=== PATIENT | male | born 1935 | race Caucasian/White ===

== ENCOUNTER 2017-02-11 08:25 | Emergency (ER) | payer OTHER ==
[2017-02-11] MEDS ORDERED: ONDANSETRON 4 MG/2 ML VIAL ONE (08:43)
[2017-02-11] MEDS ORDERED: HYDROmorphONE/DILAUDID 1 MG/ML SYR IVP ONE ×2 (08:51→10:17)
[2017-02-11] MEDS ORDERED: ONDANSETRON 4 MG/2 ML VIAL IVP ONE (08:51)
[2017-02-11] MEDS ORDERED: NS 1,000 ML IV ONE (08:51)
--- NOTE | 2017-02-11 08:51 | EDPHY ---
H & P Stated Complaint: Vomiting and LLQ pain for two hours. Time Seen by Provider: 02/11/17 08:48 HPI/ROS: CHIEF COMPLAINT: Left lower quadrant pain HISTORY OF PRESENT ILLNESS: Patient is an 81-year-old man who comes to the emergency department complaining of left lower quadrant pain that began 2 hours ago. he states that this is never happened before. He has vomited 3 times. No diarrhea. He felt well yesterday. He denies any medical history and takes no medications. He states that he saw his doctor Damon this morning who told him to come to the ER and get a CT scan. No fevers. REVIEW OF SYSTEMS: Constitutional: denies: chills, fever, recent illness, recent injury EENTM: denies: blurred vision, double vision, nose congestion Respiratory: denies: cough, shortness of breath Cardiac: denies: chest pain, irregular heart rate, lightheadedness, palpitations Gastrointestinal/Abdominal: See HPI Genitourinary: denies: dysuria, frequency, hematuria, pain Musculoskeletal: denies: joint pain, muscle pain Skin: denies: lesions, rash, jaundice, bruising Neurological: denies: headache, numbness, paresthesia, tingling, dizziness, weakness Hematologic/Lymphatic: denies: blood clots, easy bleeding, easy bruising Immunologic/allergic: denies: HIV/AIDS, transplant EXAM: GENERAL: Well-appearing, well-nourished and in no acute distress. HEAD: Atraumatic, normocephalic. EYES: Pupils equal round and reactive to light, extraocular movements intact, sclera anicteric, conjunctiva are normal. ENT: TMs normal, nares patent, oropharynx clear without exudates. Moist mucous membranes. NECK: Normal range of motion, supple without lymphadenopathy or JVD. LUNGS: Breath sounds clear to auscultation bilaterally and equal. No wheezes rales or rhonchi. HEART: Regular rate and rhythm without murmurs, rubs or gallops. ABDOMEN: Left lower quadrant pain and mild tenderness. BACK: No CVA tenderness, no spinal tenderness, step-offs or deformities EXTREMITIES: Normal range of motion, no pitting or edema. No clubbing or cyanosis. NEUROLOGICAL: Cranial nerves II through XII grossly intact. Normal speech, normal gait. 5/5 strength, normal movement in all extremities, normal sensation PSYCH: Normal mood, normal affect. SKIN: Warm, dry, normal turgor, no visible rashes or lesions. Source: Patient Exam Limitations: No limitations - Personal History Current Tetanus/Diphtheria Vaccine: Unsure Current Tetanus Diphtheria and Acellular Pertussis (TDAP): Unsure - Medical/Surgical History Hx Asthma: No Hx Chronic Respiratory Disease: No Hx Diabetes: No Hx Cardiac Disease: No Hx Renal Disease: No Hx Cirrhosis: No Hx Alcoholism: No Hx HIV/AIDS: No Hx Splenectomy or Spleen Trauma: No Other PMH: High cholesterol. - Family History Significant Family History: No pertinent family hx - Social History Smoking Status: Never smoked Alcohol Use: Sober Drug Use: None Constitutional: Initial Vital Signs Temperature (C) 36.8 C 02/11/17 08:26 Heart Rate 82 02/11/17 08:26 Respiratory Rate 18 02/11/17 08:26 Blood Pressure 178/99 H 02/11/17 08:26 O2 Sat (%) 94 02/11/17 08:26 O2 Delivery Mode Room Air O2 (L/minute) 2 Allergies/Adverse Reactions: No Known Allergies Allergy (Unverified 02/11/17 08:30) Home Medications: Medication Instructions Recorded Cholesterol Medication 02/11/17 Hydrocodone/APAP 5/325 [[place] 1 - 2 tab PO Q4H PRN #10 tab 02/11/17 5/325] Ketorolac Tromethamine [Toradol] 10 mg PO Q6H #16 tab 02/11/17 Ondansetron Odt [Zofran Odt 4 mg 4 mg PO Q4 PRN #20 tab 02/11/17 (RX)] Tamsulosin HCl [Flomax] 0.4 mg PO DAILY #10 cap 02/11/17 Medical Decision Making - Diagnostics EKG Interpretation: An EKG obtained and was read and documented in trace view. Please see trace view for full reading and report. Sinus rhythm, first-degree block, Imaging Results: Imaging Impressions Abdomen CT 02/11/17 08:52 Impression: 1. 5 x 4 mm distal left ureteral calculus (bulging into the urinary bladder lumen) results in mild left hydronephrosis and hydroureter. 2. Minimal diverticulosis of the descending and sigmoid colon. No acute diverticulitis. 3. Atherosclerotic normal caliber abdominal aorta. No aneurysm. 4. Small to moderate hiatal hernia. Findings discussed with Emergency Department physician, Forrest Luu, on February 11, 2017 at 10:20 a.m. ED Course/Re-evaluation: 11:00 a.m. we discussed the CT results. The patient is currently comfortable. His abdominal exam is benign. He has not yet provided a urine sample. We discussed kidney stone analysis and follow up with Urology. He is happy with this plan and is eager to go home. Differential Diagnosis: Partial list of the Differential diagnosis considered include but were not limited to; kidney stone, diverticulitis and although unlikely based on the history and physical exam, I also considered appendicitis, hernia, volvulus, ischemia, aneurysm. I discussed these differential diagnoses and the plan with the patient as well as the usual and expected course. The patient understands that the diagnosis is provisional and that in medicine we are not always correct and that further workup is often warranted. Usual and customary warnings were given. All of the patient's questions were answered. The patient was instructed to return to the emergency department should the symptoms at all worsen or return, otherwise to followup with the physician as we discussed. - Data Points Laboratory Results: Laboratory Results 02/11/17 08:50 02/11/17 08:50 02/11/17 02/11/17 02/11/17 11:15 08:50 08:50 WBC RBC Hgb Hct MCV MCH MCHC RDW Plt Count MPV Neut % (Auto) Lymph % (Auto) [place] % (Auto) Eos % (Auto) Baso % (Auto) Nucleat RBC Rel Count Absolute Neuts (auto) Absolute Lymphs (auto) Absolute Monos (auto) Absolute Eos (auto) Absolute Basos (auto) Absolute Nucleated RBC Immature Gran % Immature Gran # PT 13.1 SEC SEC (12.0-15.0) INR 1.00 (0.83-1.16) APTT 23.5 SEC SEC (23.0-38.0) Sodium 142 mEq/L mEq/L (134-144) Potassium 3.8 mEq/L mEq/L (3.5-5.2) Chloride 102 mEq/L mEq/L (97-110) Carbon Dioxide 24 mEq/l mEq/l (22-31) Anion Gap 16 mEq/L mEq/L (8-16) BUN 23 mg/dL mg/dL (7-23) Creatinine 1.3 mg/dL mg/dL (0.7-1.3) Estimated GFR 53 Glucose 188 mg/dL H mg/dL (70-100) Calcium 9.5 mg/dL mg/dL (8.5-10.4) Total Bilirubin 1.2 mg/dL mg/dL (0.1-1.4) Conjugated Bilirubin 0.5 mg/dL mg/dL (0.0-0.5) Unconjugated Bilirubin 0.7 mg/dL mg/dL (0.0-1.1) AST 45 IU/L IU/L (17-59) ALT 77 IU/L H IU/L (21-72) Alkaline Phosphatase 123 IU/L IU/L (38-126) Total Protein 8.6 g/dL H g/dL (6.3-8.2) Albumin 4.5 g/dL g/dL (3.5-5.0) Lipase 140.0 IU/L IU/L (23-300) Urine Color YELLOW Urine Appearance CLEAR Urine pH 5.0 (5.0-7.5) Ur Specific [place] 1.020 (1.002-1.030) Urine Protein NEGATIVE (NEGATIVE) Urine Ketones NEGATIVE (NEGATIVE) Urine Blood 1+ H (NEGATIVE) Urine Nitrate NEGATIVE (NEGATIVE) Urine Bilirubin NEGATIVE (NEGATIVE) Urine Urobilinogen NEGATIVE EU EU (0.2-1.0) Ur Leukocyte Esterase NEGATIVE (NEGATIVE) Urine RBC 15-25 /hpf H /hpf (0-3) Urine WBC 1-3 /hpf /hpf (0-3) Ur Epithelial Cells NONE SEEN /lpf /lpf (NONE-1+) Urine Mucus TRACE /lpf /lpf (NONE-1+) Urine Glucose NEGATIVE (NEGATIVE) 02/11/17 08:50 WBC 10.88 10^3/uL H 10^3/uL (3.80-9.50) RBC 5.04 10^6/uL 10^6/uL (4.40-6.38) Hgb 15.7 g/dL g/dL (13.7-17.5) Hct 45.3 % % (40.0-51.0) MCV 89.9 fL fL (81.5-99.8) MCH 31.2 pg pg (27.9-34.1) MCHC 34.7 g/dL g/dL (32.4-36.7) RDW 13.2 % % (11.5-15.2) Plt Count 223 10^3/uL 10^3/uL (150-400) MPV 9.0 fL fL (8.7-11.7) Neut % (Auto) 76.2 % H % (39.3-74.2) Lymph % (Auto) 16.0 % % (15.0-45.0) [place] % (Auto) 4.6 % % (4.5-13.0) Eos % (Auto) 1.9 % % (0.6-7.6) Baso % (Auto) 0.6 % % (0.3-1.7) Nucleat RBC Rel Count 0.0 % % (0.0-0.2) Absolute Neuts (auto) 8.29 10^3/uL H 10^3/uL (1.70-6.50) Absolute Lymphs (auto) 1.74 10^3/uL 10^3/uL (1.00-3.00) Absolute Monos (auto) 0.50 10^3/uL 10^3/uL (0.30-0.80) Absolute Eos (auto) 0.21 10^3/uL 10^3/uL (0.03-0.40) Absolute Basos (auto) 0.06 10^3/uL 10^3/uL (0.02-0.10) Absolute Nucleated RBC 0.00 10^3/uL 10^3/uL (0-0.01) Immature Gran % 0.7 % % (0.0-1.1) Immature Gran # 0.08 10^3/uL 10^3/uL (0.00-0.10) PT INR APTT Sodium Potassium Chloride Carbon Dioxide Anion Gap BUN Creatinine Estimated GFR Glucose Calcium Total Bilirubin Conjugated Bilirubin Unconjugated Bilirubin AST ALT Alkaline Phosphatase Total Protein Albumin Lipase Urine Color Urine Appearance Urine pH Ur Specific [place] Urine Protein Urine Ketones Urine Blood Urine Nitrate Urine Bilirubin Urine Urobilinogen Ur Leukocyte Esterase Urine RBC Urine WBC Ur Epithelial Cells Urine Mucus Urine Glucose Medications Given: Discontinued Medications Hydromorphone HCl (Dilaudid) 0.5 mg IVP EDNOW ONE Stop: 02/11/17 08:52 Last Admin: 02/11/17 09:16 Dose: 0.5 mg Hydromorphone HCl (Dilaudid) 0.5 mg IVP EDNOW ONE Stop: 02/11/17 10:18 Last Admin: 02/11/17 10:19 Dose: 0.5 mg Sodium Chloride (Ns) 1,000 mls @ 0 mls/hr IV ONCE ONE PRN Reason: Wide Open Stop: 02/11/17 08:52 Last Admin: 02/11/17 08:58 Dose: 1,000 mls Ketorolac Tromethamine (Toradol) 15 mg IVP EDNOW ONE Stop: 02/11/17 10:23 Last Admin: 02/11/17 10:31 Dose: 15 mg Ondansetron HCl (Zofran) 4 mg IVP EDNOW ONE Stop: 02/11/17 08:52 Last Admin: 02/11/17 08:58 Dose: 4 mg Tamsulosin HCl (Flomax) 0.4 mg PO EDNOW ONE Stop: 02/11/17 10:35 Last Admin: 02/11/17 10:35 Dose: 0.4 mg Departure - Departure Disposition: Home, Routine, Self-Care Clinical Impression: Kidney stone on left side Condition: Good Instructions: Kidney Stones (ED) Referrals: Patient,NotPresent [Unknown] - As per Instructions Jewel Sorensen MD [Medical Doctor] - As per Instructions Prescriptions: Hydrocodone/APAP 5/325 [[place] 5/325] 1 - 2 tab PO Q4H PRN #10 tab PRN Reason: Pain, Moderate Ketorolac Tromethamine [Toradol] 10 mg PO Q6H #16 tab Ondansetron Odt [Zofran Odt 4 mg (RX)] 4 mg PO Q4 PRN #20 tab PRN Reason: Nausea & Vomiting Tamsulosin HCl [Flomax] 0.4 mg PO DAILY #10 cap
[2017-02-11 09:06] LABS: % IMMATURE GRANULYOCYTES 0.7 % (0.0-1.1); ABSOLUTE IMMATURE GRANULOCYTES 0.08 10^3/uL (0.00-0.10); ADD DIFF? NO; ADD MORPH? NO; ADD SCAN? NO; ATYPICAL LYMPHOCYTE FLAG 20 (0-99); FRAGMENT RBC FLAG 0 (0-99); HEMATOCRIT 45.3 % (40.0-51.0); HEMOGLOBIN 15.7 g/dL (13.7-17.5); LEFT SHIFT FLG 0 (0-99); LIPEMIA HEMOLYSIS FLAG 90 (0-99); MEAN CELL HEMOGLOBIN 31.2 pg (27.9-34.1); MEAN CELL HEMOGLOBIN CONCENTR. 34.7 g/dL (32.4-36.7); MEAN CELL VOLUME 89.9 fL (81.5-99.8); PLATELET CLUMPS FLAG 0 (0-99); PLATELET COUNT 223 10^3/uL (150-400); RED BLOOD CELL COUNT 5.04 10^6/uL (4.40-6.38); RED CELL DISTRIBUTION WIDTH 13.2 % (11.5-15.2)
[2017-02-11 09:18] LABS: PROTIME(PATIENT) 13.1 SEC (12.0-15.0)
[2017-02-11 09:19] LABS: APTT 23.5 SEC (23.0-38.0)
[2017-02-11 09:23] LABS: ALANINE AMINOTRANSFERASE 77 IU/L (21-72); ALBUMIN 4.5 g/dL (3.5-5.0); ALKALINE PHOSPHATASE 123 IU/L (38-126); ANION GAP 16 mEq/L (8-16); ASPARTATE AMINOTRANSFERASE 45 IU/L (17-59); BILIRUBIN,TOTAL 1.2 mg/dL (0.1-1.4); BILIRUBIN-CONJUGATED 0.5 mg/dL (0.0-0.5); BILIRUBIN-UNCONJUGATED 0.7 mg/dL (0.0-1.1); CALCIUM 9.5 mg/dL (8.5-10.4); CARBON DIOXIDE 24 mEq/l (22-31); CHLORIDE 102 mEq/L (97-110); CREATININE 1.3 mg/dL (0.7-1.3); GLOMERULAR FILTRATION RATE 53; GLUCOSE 188 mg/dL (70-100); POTASSIUM 3.8 mEq/L (3.5-5.2); SODIUM 142 mEq/L (134-144); TOTAL PROTEIN 8.6 g/dL (6.3-8.2)
--- NOTE | 2017-02-11 09:23 | CPEKG ---
Heart Rate: 55 RR Interval: 1091 P-R Interval: 232 QRSD Interval: 110 QT Interval: 464 QTC Interval: 444 P [place]: 59 QRS [place]: -55 T Wave [place]: 79 EKG Severity - ABNORMAL ECG - EKG Impression: SINUS RHYTHM EKG Impression: FIRST DEGREE AV BLOCK EKG Impression: LEFT ANTERIOR FASCICULAR BLOCK Electronically Signed By: Forrest Luu 11-Feb-2017 09:31:07
[2017-02-11] MEDS ORDERED: IOPAMIDOL (ISOVUE-300) 100 ML BTL ONE (09:36)
[2017-02-11] MEDS ORDERED: HYDROmorphONE/DILAUDID 1 MG/ML SYR ONE (09:44)
[2017-02-11 10:01] VITALS: RESP 16
[2017-02-11] MEDS ORDERED: KETOROLAC 30 MG/1 ML SDV IVP ONE (10:22)
[2017-02-11] MEDS ORDERED: TAMSULOSIN HCL 0.4 MG CAP PO ONE ×2 (10:30→10:34)
[2017-02-11 11:19] VITALS: BP 166/74; PULSE 76; TEMP 97.5; O2SAT 97
[2017-02-11 11:23] LABS: COLOR YELLOW; LEUKOCYTE ESTERASE,URINE NEGATIVE (NEGATIVE); NITRITE,URINE NEGATIVE (NEGATIVE)
[2017-02-11 11:29] LABS: MUCUS TRACE /lpf (NONE-1+); RBC,URINE 15-25 /hpf (0-3)
== END 2017-02-11 11:19 | disposition home or self-care (01) ==
DX: N20.0 Calculus of kidney (principal)
CPT/HCPCS: 74177; 93005; 96374; 96375; 96376; 99285; J1170; J1885; J2405; Q9967

== ENCOUNTER 2017-10-31 12:45 | Emergency (ER) | payer OTHER ==
[2017-10-31 12:54] VITALS: TEMP 98.2; O2SAT 96
--- NOTE | 2017-10-31 13:14 | EDPHY ---
H & P Stated Complaint: bilat lower back x 2 days no trauma or urinary complaints Time Seen by Provider: 10/31/17 13:13 HPI/ROS: CHIEF COMPLAINT: Lumbar pain HISTORY OF PRESENT ILLNESS: The patient presents to the ED with complaints of lumbar pain for the past 3 days. He describes a pain which is located bilaterally in the paraspinal musculature of the lumbar spine. He denies any history of fall or trauma. He denies any acute numbness or weakness. He denies fever, weight loss or prior history of cancer. The patient is not anticoagulated. He rates his pain is moderate in nature. REVIEW OF SYSTEMS: A comprehensive 10 point review of systems is otherwise negative aside from elements mentioned in the history of present illness. Source: Patient Exam Limitations: No limitations - Personal History Current Tetanus/Diphtheria Vaccine: Unsure Current Tetanus Diphtheria and Acellular Pertussis (TDAP): Unsure - Medical/Surgical History Hx Asthma: No Hx Chronic Respiratory Disease: No Hx Diabetes: No Hx Cardiac Disease: No Hx Renal Disease: No Hx Cirrhosis: No Hx Alcoholism: No Hx HIV/AIDS: No Hx Splenectomy or Spleen Trauma: No Other PMH: High cholesterol. - Social History Smoking Status: Never smoked - Physical Exam Exam: General Appearance: Alert, no distress Eyes: Pupils equal and round no pallor or injection ENT, Mouth: Mucous membranes moist Respiratory: There are no retractions, lungs are clear to auscultation Cardiovascular: Regular rate and rhythm Gastrointestinal: Abdomen is soft and nontender, no masses, bowel sounds normal Neurological: A&O, normal motor function, normal sensory exam, normal cranial nerves Skin: Warm and dry, no rashes Musculoskeletal: Tenderness to palpation in the paraspinal lumbar musculature Extremities: symmetrical, full range of motion Psychiatric: Patient is oriented X 3, there is no agitation Constitutional: Initial Vital Signs Temperature (C) 36.8 C 10/31/17 12:52 Heart Rate 75 10/31/17 12:52 Respiratory Rate 16 10/31/17 12:52 Blood Pressure 149/78 H 10/31/17 12:52 O2 Sat (%) 96 10/31/17 12:52 O2 Delivery Mode Room Air Allergies/Adverse Reactions: No Known Allergies Allergy (Verified 10/31/17 12:59) Home Medications: Medication Instructions Recorded Aspirin 10/31/17 Cyclobenzaprine [Flexeril 10 MG 10 mg PO TID PRN #15 tab 10/31/17 (*)] Hydrocodone/APAP 5/325 [[place] 1 - 2 each PO Q6 PRN #20 tab 10/31/17 5/325] Lidocaine 5% [Lidoderm 5% Patch 1 ea TD DAILY #12 patch 10/31/17 (*)] Lipitor 10/31/17 Medical Decision Making - Diagnostics Imaging Results: Imaging Impressions Lumbar Spine X-Ray 10/31/17 13:33 Impression: 1. Small marginal osteophytes with minimal disk space narrowing throughout the lumbar spine. 2. Minimal 3 to 4 mm of anterior subluxation of L4 on L5. 3. Mild facet hypertrophy at L4-L5 and L5-S1. ED Course/Re-evaluation: The patient presents to the emergency department with low back pain. The patient has bilateral lumbar musculoskeletal pain on exam. He has no midline tenderness. He is neurologically intact. The patient's lumbar x-ray demonstrates no evidence of an obvious compression fracture. The patient was given [place], lidocaine patch and Flexeril in the emergency department. The patient will be given prescriptions for muscle relaxant, encouraged to continue NSAIDs and lidocaine patch. He should use opioids as needed for uncontrolled pain. I re-evaluated the patient at 3:00 p.m. he is comfortable going home. He continues to be neurologically intact. He has no red flag warnings for low back pain. The patient will follow up with his regular physician at [facility] for any ongoing symptoms. He will return to the ED to see us for markedly worsening symptoms or other concerns. Differential Diagnosis: Differential diagnosis considered includes compression fracture, myofascial strain, sciatica - Data Points Medications Given: Discontinued Medications Hydrocodone Bitart/Acetaminophen ([place] 5/325) 2 tab PO EDNOW ONE Stop: 10/31/17 13:34 Last Admin: 10/31/17 13:45 Dose: 2 tab Cyclobenzaprine HCl (Flexeril) 10 mg PO EDNOW ONE Stop: 10/31/17 14:16 Last Admin: 10/31/17 14:34 Dose: 10 mg Lidocaine (Lidoderm 5%) 1 ea TD EDNOW ONE Stop: 10/31/17 14:16 Last Admin: 10/31/17 14:34 Dose: 1 ea Departure - Departure Disposition: Home, Routine, Self-Care Clinical Impression: Lumbar sprain Condition: Good Instructions: Low Back Strain (ED) Additional Instructions: 1. Take Ibuprofen or Motrin 600 mg by mouth three times a day. 2. Lidocaine patches prescribed. 3. Flexeril as needed for muscle pain. Referrals: SHARAD ELDER [Other] - As per Instructions Prescriptions: Cyclobenzaprine [Flexeril 10 MG (*)] 10 mg PO TID PRN #15 tab PRN Reason: Spasms Hydrocodone/APAP 5/325 [[place] 5/325] 1 - 2 each PO Q6 PRN #20 tab PRN Reason: for pain Lidocaine 5% [Lidoderm 5% Patch (*)] 1 ea TD DAILY #12 patch
[2017-10-31] MEDS ORDERED: HYDROCODONE/APAP 5/325 TAB PO ONE (13:33)
[2017-10-31] MEDS ORDERED: CYCLOBENZAPRINE 10 MG TAB PO ONE (14:15)
[2017-10-31] MEDS ORDERED: LIDOCAINE 5% 1 EA PATCH TD ONE (14:15)
[2017-10-31 15:07] VITALS: BP 146/78; PULSE 82; RESP 18
[2017-10-31] MEDS ORDERED: PATCH REMOVAL 1 EA PATCH TD SCH (21:00)
== END 2017-10-31 15:07 | disposition home or self-care (01) ==
DX: S33.9XXA Sprain of unspecified parts of lumbar spine and pelvis, initial encounter (principal); Z79.82 Long term (current) use of aspirin; X58.XXXA Exposure to other specified factors, initial encounter